=== PATIENT | male | born 1950 | race Caucasian/White ===

== ENCOUNTER → 2017-01-08 | Outpatient (CLI) | payer MEDICARE | END | disposition home or self-care (01) | LOC: RESCLI 02:59 → WOUNDCARE 10:44 → RESCLI 10:49 | DX: J44.9 Chronic obstructive pulmonary disease, unspecified (principal); I10 Essential (primary) hypertension; H61.23 Impacted cerumen, bilateral; Z87.891 Personal history of nicotine dependence ==

== ENCOUNTER → 2017-07-09 | Outpatient (CLI) | payer MEDICARE | END | disposition home or self-care (01) | LOC: RESCLI 00:46 | DX: J44.9 Chronic obstructive pulmonary disease, unspecified (principal); I10 Essential (primary) hypertension ==

== ENCOUNTER → 2018-06-14 | Outpatient (CLI) | payer MEDICARE ==
[~2018-06-14] MED LIST: COREG12.5 M1 PO; KLORVESS,K40 MEQ/30 PO; LASIX40 MG PO; NIFEDIPINE ER60 M1 PO
== END | disposition home or self-care (01) ==
LOC: US 08:41
DX: I10 Essential (primary) hypertension (principal); R94.4 Abnormal results of kidney function studies

== ENCOUNTER → 2018-07-30 | Outpatient (CLI) | payer MEDICARE ==
[~2018-07-30] MED LIST changes: +ATORVASTATIN CA40 M1 PO; +BUMETANIDE2 MG PO; +CLONIDINE HCL0.1 MG PO; +EFFER-K25 MEQ PO; +Hydralazine Hyd25 MG PO; +LISINOPRIL20 MG PO; +METOLAZONE5 MG PO; +OMEPRAZOLE D/R20 MG PO; +PREDNISONE20 M1 PO; +PRINIVIL20 M1 PO; +SEPTDS PO; +SPIRIVA18 MCG PO; +SYMB160 INH; +VITAMIN D32000 UNI1 PO; +Vitamin D PO; +ZESTRIL10 MG PO
[2018-07-30 13:51] LABS: ALBUMIN 2.2 gm/dl (3.1-4.5); CREATININE 3.37 mg/dL (0.70-1.30); PHOSPHOROUS 4.6 mg/dL (2.5-4.9)
== END | disposition home or self-care (01) ==
LOC: LAB 12:44
PROVIDERS: Family Medicine
DX: R94.4 Abnormal results of kidney function studies (principal)

== ENCOUNTER → 2018-08-08 | Outpatient (CLI) | payer MEDICARE ==
[2018-08-08 07:49] LABS: BILIRUBIN NEGATIVE (NEGATIVE); BLOOD 1+ (NEGATIVE); CLARITY CLEAR (CLEAR); COLOR YELLOW (YELLOW); GLUCOSE 3+ (NEGATIVE); KETONE NEGATIVE (NEGATIVE); LEUKO ESTERASE NEGATIVE (NEGATIVE); NITRITE NEGATIVE (NEGATIVE); PH 6.5 (5.0-9.0); UROBILINOGEN 0.2 E.U./dl (0.2-1.0)
[2018-08-08 07:59] LABS: ALBUMIN 2.4 gm/dl (3.1-4.5); CREATININE 3.78 mg/dL (0.70-1.30); PHOSPHOROUS 5.9 mg/dL (2.5-4.9); POTASSIUM 3.4 mmol/L (3.5-5.1)
[2018-08-08 08:00] LABS: URINE CREATININE RANDOM 70.7 mg/dL
[2018-08-08 08:08] LABS: BACTERIA 2+; HYALINE CAST 40-45
[2018-08-08 08:30] LABS: BASO # 0.1 10*3/uL (0.0-0.1); BASO % 0.7 % (0.0-1.0); EOS # 0.3 10*3/uL (0.0-0.4); EOS % 3.6 % (1.0-4.0); HEMATOCRIT 39.7 % (42.0-52.0); LYMPH # 1.7 10*3/uL (1.3-4.4); MEAN CELL VOLUME 93.4 fl (80.0-94.0); MEAN CORPUSCULAR HGB 30.6 pg (27.0-31.0); MEAN CORPUSCULAR HGB CONC 32.7 g/dl (33.0-37.0); MEAN PLATELET VOLUME 11.3 fl (9.6-12.3); MONO # 0.7 10*3/uL (0.1-1.0); MONO % 7.6 % (3.0-9.0); NEUT # 5.8 10*3/uL (2.3-7.9); NEUT % 67.5 % (47.0-73.0); PLATELET COUNT AUTOMATED 341 10*3/uL (130-400); RED BLOOD COUNT 4.25 10*6/uL (4.50-5.90); RED CELL DISTRI WIDTH 13.6 % (0-14.5); WHITE BLOOD COUNT 8.6 10*3/uL (4.8-10.8)
[2018-08-08 12:08] LABS: FERRITIN 334.8 ng/mL (22.0-322.0); PTH INTACT 629.5 pg/mL (18.5-88.0)
[2018-08-09 05:07] LABS: TOTAL PROTEIN, SERUM 5.7 g/dL (6.0-8.5)
[2018-08-09 07:10] LABS: HEPATITIS B SURFACE AG Negative (Negative); HEPATITIS C VIRUS ANTIBODY 0.1 s/co (0.0-0.9)
[2018-08-09 08:11] LABS: COMPLEMENT C4 001834 25 mg/dL (14-44); IMMUNOGLOBULIN G, QNT 660 mg/dL (700-1600); IMMUNOGLOBULIN M, QNT 134 mg/dL (20-172)
[2018-08-09 16:09] LABS: FREE KAPPA LIGHT CHAINS 180.6 mg/L (3.3-19.4); FREE LAMBDA LIGHT CHAINS 52.5 mg/L (5.7-26.3); KAPPA/LAMBDA RATIO 3.44 (0.26-1.65)
[2018-08-11 14:08] LABS: ALBUMIN 2.8 g/dL (2.9-4.4); ALPHA-1-GLOBULIN 0.2 g/dL (0.0-0.4); GAMMA GLOBULIN 0.7 g/dL (0.4-1.8); GLOBULIN, TOTAL 2.9 g/dL (2.2-3.9); M-SPIKE 0.2 g/dL (Not Observed); PE INTERPRETATION Comment: (.)
[2018-08-11 16:06] LABS: ATYPICAL PANCA <1:20 titer (Neg:<1:20); CYTOPLASMIC (C-ANCA) <1:20 titer (Neg:<1:20)
[2018-08-12 15:09] LABS: ALBUMIN 2.9 g/dL (2.9-4.4); ALPHA-1-GLOBULIN 0.2 g/dL (0.0-0.4); GAMMA GLOBULIN 0.7 g/dL (0.4-1.8); GLOBULIN, TOTAL 2.9 g/dL (2.2-3.9); M-SPIKE 0.2 g/dL (Not Observed); TOTAL PROTEIN, SERUM 5.8 g/dL (6.0-8.5)
== END | disposition home or self-care (01) ==
LOC: LAB 07:05
PROVIDERS: Internal Medicine Nephrology
DX: N17.9 Acute kidney failure, unspecified (principal); N18.3 Chronic kidney disease, stage 3 (moderate); D63.1 Anemia in chronic kidney disease; N25.81 Secondary hyperparathyroidism of renal origin; D64.9 Anemia, unspecified; Z79.899 Other long term (current) drug therapy

== ENCOUNTER → 2018-08-28 | Day surgery (SDC) | payer MEDICARE ==
[2018-08-28] VITALS (8 sets, daily range): BP systolic 122–164; BP diastolic 57–81
[2018-08-28 09:39] LABS: ACT PARTIAL THROMBO TIME 26.2 SECONDS (20.0-32.1)
== END | disposition home or self-care (01) ==
LOC: SDC 01:53 → CT 10:00 → SDC 11:00
PROVIDERS: Internal Medicine Nephrology
DX: N17.9 Acute kidney failure, unspecified (principal); I12.9 Hypertensive chronic kidney disease with stage 1 through stage 4 chronic kidney disease, or unspecified chronic kidney disease; N18.3 Chronic kidney disease, stage 3 (moderate); D63.1 Anemia in chronic kidney disease; E78.00 Pure hypercholesterolemia, unspecified; J44.9 Chronic obstructive pulmonary disease, unspecified; F15.90 Other stimulant use, unspecified, uncomplicated; R80.8 Other proteinuria; Z79.899 Other long term (current) drug therapy; Z72.89 Other problems related to lifestyle; Z87.891 Personal history of nicotine dependence; Z80.0 Family history of malignant neoplasm of digestive organs

== ENCOUNTER → 2018-10-01 | Outpatient (CLI) | payer MEDICARE ==
[2018-10-01 10:29] LABS: BASO % 0.2 % (0.0-1.0); EOS # 0.1 10*3/uL (0.0-0.4); EOS % 0.8 % (1.0-4.0); HEMATOCRIT 35.6 % (42.0-52.0); HEMOGLOBIN 12.1 g/dl (14.0-18.0); LYMPH # 0.8 10*3/uL (1.3-4.4); LYMPH % 6.1 % (27.0-41.0); MEAN CELL VOLUME 88.1 fl (80.0-94.0); MEAN PLATELET VOLUME 11.1 fl (9.6-12.3); MONO # 0.4 10*3/uL (0.1-1.0); MONO % 3.2 % (3.0-9.0); NEUT # 11.2 10*3/uL (2.3-7.9); NEUT % 87.7 % (47.0-73.0); PLATELET COUNT AUTOMATED 243 10*3/uL (130-400); RED BLOOD COUNT 4.04 10*6/uL (4.50-5.90); RED CELL DISTRI WIDTH 12.9 % (0-14.5); WHITE BLOOD COUNT 12.8 10*3/uL (4.8-10.8)
[2018-10-01 10:56] LABS: ALBUMIN 1.9 gm/dl (3.1-4.5); CREATININE 3.01 mg/dL (0.70-1.30); PHOSPHOROUS 5.8 mg/dL (2.5-4.9); POTASSIUM 3.1 mmol/L (3.5-5.1)
== END | disposition home or self-care (01) ==
LOC: LAB 09:56
PROVIDERS: Internal Medicine Nephrology
DX: N18.3 Chronic kidney disease, stage 3 (moderate) (principal); D63.1 Anemia in chronic kidney disease

== ENCOUNTER → 2018-10-15 | Outpatient (CLI) | payer MEDICARE ==
[~2018-10-15] MED LIST changes: -ATORVASTATIN CA40 M1 PO; -BUMETANIDE2 MG PO; -CLONIDINE HCL0.1 MG PO; -EFFER-K25 MEQ PO; -Hydralazine Hyd25 MG PO; -LISINOPRIL20 MG PO; -METOLAZONE5 MG PO; -OMEPRAZOLE D/R20 MG PO; -PREDNISONE20 M1 PO; -PRINIVIL20 M1 PO; -SEPTDS PO; -SPIRIVA18 MCG PO; -SYMB160 INH; -VITAMIN D32000 UNI1 PO; -Vitamin D PO; -ZESTRIL10 MG PO
== END | disposition home or self-care (01) ==
LOC: RESCLI 09:43
DX: E78.2 Mixed hyperlipidemia (principal); I12.9 Hypertensive chronic kidney disease with stage 1 through stage 4 chronic kidney disease, or unspecified chronic kidney disease; N18.4 Chronic kidney disease, stage 4 (severe); J43.8 Other emphysema; R60.9 Edema, unspecified; K21.9 Gastro-esophageal reflux disease without esophagitis

== ENCOUNTER → 2018-11-11 | Outpatient (CLI) | payer MEDICARE ==
[~2018-11-11] MED LIST changes: +ATORVASTATIN CA40 M1 PO; +BUMETANIDE2 MG PO; +CLONIDINE HCL0.1 MG PO; +EFFER-K25 MEQ PO; +Hydralazine Hyd25 MG PO; +LISINOPRIL20 MG PO; +METOLAZONE5 MG PO; +OMEPRAZOLE D/R20 MG PO; +PREDNISONE20 M1 PO; +PRINIVIL20 M1 PO; +SEPTDS PO; +SPIRIVA18 MCG PO; +SYMB160 INH; +VITAMIN D32000 UNI1 PO; +Vitamin D PO; +ZESTRIL10 MG PO
[2018-11-11 13:30] LABS: BILIRUBIN NEGATIVE (NEGATIVE); BLOOD 1+ (NEGATIVE); CLARITY CLEAR (CLEAR); COLOR YELLOW (YELLOW); GLUCOSE 3+ (NEGATIVE); KETONE NEGATIVE (NEGATIVE); LEUKO ESTERASE NEGATIVE (NEGATIVE); NITRITE NEGATIVE (NEGATIVE); UROBILINOGEN 0.2 E.U./dl (0.2-1.0)
[2018-11-11 13:34] LABS: BASO % 0.5 % (0.0-1.0); HEMATOCRIT 27.5 % (42.0-52.0); LYMPH # 0.4 10*3/uL (1.3-4.4); LYMPH % 5.4 % (27.0-41.0); MEAN CELL VOLUME 93.9 fl (80.0-94.0); MEAN CORPUSCULAR HGB 30.7 pg (27.0-31.0); MEAN CORPUSCULAR HGB CONC 32.7 g/dl (33.0-37.0); MEAN PLATELET VOLUME 9.7 fl (9.6-12.3); MONO # 0.3 10*3/uL (0.1-1.0); MONO % 3.8 % (3.0-9.0); NEUT # 5.7 10*3/uL (2.3-7.9); NEUT % 87.4 % (47.0-73.0); PLATELET COUNT AUTOMATED 304 10*3/uL (130-400); RED BLOOD COUNT 2.93 10*6/uL (4.50-5.90); RED CELL DISTRI WIDTH 16.2 % (0-14.5); WHITE BLOOD COUNT 6.5 10*3/uL (4.8-10.8)
[2018-11-11 13:44] LABS: RBC 0-2 rbc/hpf (0-2); WBC 0-2 wbc/hpf (0-5)
[2018-11-11 13:58] LABS: ALBUMIN 2.6 gm/dl (3.1-4.5); CREATININE 4.02 mg/dL (0.70-1.30); PHOSPHOROUS 4.8 mg/dL (2.5-4.9); POTASSIUM 3.8 mmol/L (3.5-5.1)
[2018-11-12 08:10] LABS: ALPHA-1-ANTITRYPSIN, SERUM 126 mg/dL (90-200)
[2018-11-13 14:07] LABS: PHENOTYPE MS (.)
== END | disposition home or self-care (01) ==
LOC: LAB 13:06
PROVIDERS: Internal Medicine Critical Care Medicine; Internal Medicine Nephrology
DX: J44.9 Chronic obstructive pulmonary disease, unspecified (principal); N04.2 Nephrotic syndrome with diffuse membranous glomerulonephritis; Z79.899 Other long term (current) drug therapy

== ENCOUNTER → 2018-11-19 | Outpatient (CLI) | payer MEDICARE | END | disposition home or self-care (01) | LOC: RESCLI 01:01 | DX: R60.9 Edema, unspecified (principal); K21.9 Gastro-esophageal reflux disease without esophagitis; J43.8 Other emphysema; I12.9 Hypertensive chronic kidney disease with stage 1 through stage 4 chronic kidney disease, or unspecified chronic kidney disease; N18.4 Chronic kidney disease, stage 4 (severe); F33.0 Major depressive disorder, recurrent, mild; Z79.899 Other long term (current) drug therapy ==

== ENCOUNTER 2018-11-26 08:57 | Inpatient (IN) | payer MEDICARE ==
[~2018-11-26] VITALS: Ht 180.3 cm; Wt 80.4 kg
[~2018-11-26 08:57] MED LIST changes: -ATORVASTATIN CA40 M1 PO; -BUMETANIDE2 MG PO; -CLONIDINE HCL0.1 MG PO; -EFFER-K25 MEQ PO; -Hydralazine Hyd25 MG PO; -LISINOPRIL20 MG PO; -METOLAZONE5 MG PO; -OMEPRAZOLE D/R20 MG PO; -PREDNISONE20 M1 PO; -PRINIVIL20 M1 PO; -SEPTDS PO; -SPIRIVA18 MCG PO; -SYMB160 INH; -VITAMIN D32000 UNI1 PO; -Vitamin D PO; -ZESTRIL10 MG PO
[2018-11-26 09:37] VITALS: BP 151/71
[2018-11-26] MEDS ORDERED: ZESTRIL10 MG PO (09:48)
[2018-11-26] MEDS ORDERED: SEPTDS PO (09:50)
[2018-11-26] MEDS ORDERED: Hydralazine Hyd25 MG PO (09:51)
[2018-11-26] MEDS ORDERED: PREDNISONE20 M1 PO (09:51)
[2018-11-26] MEDS ORDERED: OMEPRAZOLE D/R20 MG PO (09:52)
[2018-11-26] MEDS ORDERED: CLONIDINE HCL0.1 MG PO (09:52)
[2018-11-26] MEDS ORDERED: BUMETANIDE2 MG PO (09:53)
[2018-11-26] MEDS ORDERED: EFFER-K25 MEQ PO (09:53)
[2018-11-26] MEDS ORDERED: METOLAZONE5 MG PO (09:54)
[2018-11-26] MEDS ORDERED: SYMB160 INH (09:55)
[2018-11-26] MEDS ORDERED: SPIRIVA18 MCG PO (09:56)
--- NOTE | 2018-11-26 10:03 | NUR ---
A 68, admitted to , under the services of LEILA Lester DO with a diagnosis of CHRONIC RENAL FAILURE. Chief complaint is CHRONIC RENAL FAILURE. Patient arrived via bed from OP/ADMIT. Monitor applied. Initial assessment completed. Vital signs taken and recorded. LEILA LESTER DO notified of admission to the unit. Orders received. See assessment for past medical history, medications and allergies. Patient and/or family oriented to unit. [facility]. Clothing/patient valuable form completed. RYAN LOUIS
[2018-11-26 11:54] LABS: HEMATOCRIT 26.9 % (42.0-52.0); HEMOGLOBIN 8.8 g/dl (14.0-18.0); MEAN CELL VOLUME 94.4 fl (80.0-94.0); MEAN CORPUSCULAR HGB 30.9 pg (27.0-31.0); MEAN CORPUSCULAR HGB CONC 32.7 g/dl (33.0-37.0); PLATELET COUNT AUTOMATED 146 10*3/uL (130-400); RED BLOOD COUNT 2.85 10*6/uL (4.50-5.90); RED CELL DISTRI WIDTH 17.6 % (0-14.5); WHITE BLOOD COUNT 8.4 10*3/uL (4.8-10.8)
[2018-11-26 12:00] VITALS: BP 172/58
[2018-11-26 12:07] LABS: ALBUMIN 2.4 gm/dl (3.1-4.5); CREATININE 3.11 mg/dL (0.70-1.30); POTASSIUM 4.4 mmol/L (3.5-5.1); TOTAL PROTEIN 5.6 gm/dL (6.4-8.2)
[2018-11-26 12:17] LABS: OVALOCYTES FEW; PLATELET SUFFICIENCY NORMAL (NORMAL); POLYCHROMASIA SLIGHT; SCHISTOCYTES FEW; TOTAL CELLS COUNTED 100 #CELLS
[2018-11-26 16:00] VITALS: BP 131/59
[2018-11-26 20:00] VITALS: BP 133/63
[2018-11-26 22:25] LABS: BILIRUBIN NEGATIVE (NEGATIVE); BLOOD TRACE-INTACT (NEGATIVE); CLARITY CLEAR (CLEAR); COLOR YELLOW (YELLOW); GLUCOSE 3+ (NEGATIVE); KETONE NEGATIVE (NEGATIVE); LEUKO ESTERASE NEGATIVE (NEGATIVE); NITRITE NEGATIVE (NEGATIVE); SPECIFIC GRAVITY 1.015 (1.005-1.030); UROBILINOGEN 0.2 E.U./dl (0.2-1.0)
[2018-11-26 22:32] LABS: RBC 0-2 rbc/hpf (0-2)
[2018-11-26 22:33] LABS: BACTERIA TRACE; EPITHELIAL CELLS 0-2; WBC 0-2 wbc/hpf (0-5)
[2018-11-27] VITALS: BP 114/79
--- NOTE | 2018-11-27 01:44 | NUR ---
24 HR chart check completed.
[2018-11-27 06:24] LABS: BASO % 0.1 % (0.0-1.0); EOS # 0.2 10*3/uL (0.0-0.4); EOS % 2.7 % (1.0-4.0); HEMATOCRIT 25.7 % (42.0-52.0); HEMOGLOBIN 8.5 g/dl (14.0-18.0); LYMPH # 0.9 10*3/uL (1.3-4.4); LYMPH % 13.1 % (27.0-41.0); MEAN CELL VOLUME 94.1 fl (80.0-94.0); MEAN CORPUSCULAR HGB 31.1 pg (27.0-31.0); MEAN CORPUSCULAR HGB CONC 33.1 g/dl (33.0-37.0); MEAN PLATELET VOLUME 10.4 fl (9.6-12.3); MONO # 0.3 10*3/uL (0.1-1.0); MONO % 4.1 % (3.0-9.0); NEUT # 5.6 10*3/uL (2.3-7.9); NEUT % 79.4 % (47.0-73.0); PLATELET COUNT AUTOMATED 178 10*3/uL (130-400); RED BLOOD COUNT 2.73 10*6/uL (4.50-5.90); RED CELL DISTRI WIDTH 17.7 % (0-14.5)
[2018-11-27 06:27] LABS: ALBUMIN 2.2 gm/dl (3.1-4.5); CREATININE 3.04 mg/dL (0.70-1.30); PHOSPHOROUS 4.8 mg/dL (2.5-4.9); POTASSIUM 3.6 mmol/L (3.5-5.1); TOTAL PROTEIN 5.1 gm/dL (6.4-8.2)
[2018-11-27 06:31] LABS: THYROID STIM HORMONE (HS) 3.55 uIU/ml (0.358-4.75)
[2018-11-27 08:00] VITALS: BP 134/56
[2018-11-27 08:27] LABS: VITAMIN D, 25-HYDROXY 21.9 ng/mL (30-100)
--- NOTE | 2018-11-27 11:14 | NUR ---
Bracelet And Brooch Maker in to talk to patient. Patient states lives at home with . There are few steps in the home. Physician: [facility] Pharmacy: [facility] Home health services: none Patient's level of ADLs: INDEPENDENT Patient has working utilities: all working DME: none Follow-up physician's appointment after d/c: will be made by hospitalist nurse director upon discharge Does patient want to access PORTAL?: no Discharge plan discussed with patient, he lives at home with , is independent in adls and ambulation, will be returning home and denies any home needs. ANNA GREY
[2018-11-27 12:00] VITALS: BP 128/60
[2018-11-27] MEDS ORDERED: LISINOPRIL20 MG PO (14:09)
[2018-11-27] MEDS ORDERED: Vitamin D PO (14:09)
[2018-11-27] MEDS ORDERED: VITAMIN D32000 UNI1 PO (14:10)
--- NOTE | 2018-11-27 14:52 | NUR ---
Spoke to Dr. Escalona. He would like CM to start a prior authorization for Rituximab. Spoke to Dr. Escalona's office at [phone] regarding Rituximab prescription. Office spoke to Ginny who stated they didn't receive all of the faxes. Asked if the prescription could be faxed to [phone] for CM to start prior authorization. Awaiting fax.
--- NOTE | 2018-11-27 15:15 | NUR ---
case management was asked to check on authorization for Rituxan injection for patient, called insurance company and spoke to Alayna, this medication has been approved from February 2018 until February 2019, authorization numberis [id number], spoke to Marlyn in central scheduling and informed her of this, also received a call from Sandra from surgery stating she has the orders for patient to initiate his treatment and she will fax them to the pharmacy
[2018-11-27 16:00] VITALS: BP 120/50
[2018-11-27 20:00] VITALS: BP 128/55
--- NOTE | 2018-11-27 20:20 | NUR ---
RESTING IN BED IN A POSITION OF COMFORT, DENIES ANY PAIN OR DISTRESS AT THIS TIME. A&O X3, PLEASANT, COOPERATIVE, CONVERSES EASILY. CALL LIGHT WITHIN REACH. WILL CONTINUE TO MONITOR.
[2018-11-28] VITALS: BP 141/56
--- NOTE | 2018-11-28 00:35 | NUR ---
RESTING IN BED IN A POSITION OF COMFORT. RESPIRATIONS EASY AND REGULAR. NO APPARENT SIGNS OF DISTRESS NOTED. CALL LIGHT WITHIN REACH. WILL CONTINUE TO MONITOR.
[2018-11-28 07:23] LABS: POTASSIUM 3.9 mmol/L (3.5-5.1)
[2018-11-28 07:33] LABS: ALBUMIN 2.3 gm/dl (3.1-4.5); CREATININE 2.96 mg/dL (0.70-1.30); PHOSPHOROUS 4.5 mg/dL (2.5-4.9)
[2018-11-28 08:00] VITALS: BP 128/56
[2018-11-28] MEDS ORDERED: ATORVASTATIN CA40 M1 PO ×2 (08:50→08:51)
[2018-11-28] MEDS ORDERED: LISINOPRIL20 MG PO (08:51)
--- NOTE | 2018-11-28 11:16 | NUR ---
Discharge instructions reviewed with patient/family. Patient receptive and verbalizes understanding. Follow-up care arranged. Written instructions given to patient/family. HARRISON ROMO
[2018-11-28] MEDS ORDERED: PRINIVIL20 M1 PO (12:06)
== END 2018-11-28 11:16 | disposition home or self-care (01) | DRG 698 ==
LOC: RESCLI 08:57 → 4E 09:20
PROVIDERS: Internal Medicine; Student in an Organized Health Care Education/Training Program; ADMIT Internal Medicine
DX: N05.2 Unspecified nephritic syndrome with diffuse membranous glomerulonephritis (principal); E43 Unspecified severe protein-calorie malnutrition; I12.9 Hypertensive chronic kidney disease with stage 1 through stage 4 chronic kidney disease, or unspecified chronic kidney disease; N18.4 Chronic kidney disease, stage 4 (severe); J44.9 Chronic obstructive pulmonary disease, unspecified; D53.9 Nutritional anemia, unspecified; R73.9 Hyperglycemia, unspecified; D72.810 Lymphocytopenia; Z87.891 Personal history of nicotine dependence; Z80.0 Family history of malignant neoplasm of digestive organs; Z79.899 Other long term (current) drug therapy; Z68.26 Body mass index [BMI] 26.0-26.9, adult; Z79.52 Long term (current) use of systemic steroids

== ENCOUNTER → 2018-12-15 | Outpatient (CLI) | payer MEDICARE ==
[~2018-12-15] MED LIST changes: +ATORVASTATIN CA40 M1 PO; +BUMETANIDE2 MG PO; +CLONIDINE HCL0.1 MG PO; +EFFER-K25 MEQ PO; +HYDROCODONE-AC1 EAC1 PO; +Hydralazine Hyd25 MG PO; +LISINOPRIL20 MG PO; +METOLAZONE5 MG PO; +OMEPRAZOLE D/R20 MG PO; +PREDNISONE20 M1 PO; +PRINIVIL20 M1 PO; +SEPTDS PO; +SPIRIVA -- 3018 MCG INH; +SPIRIVA18 MCG PO; +SYMB160 INH; +VITAMIN D32000 UNI1 PO; +Vitamin D PO; +ZESTRIL10 MG PO
[2018-12-15 14:10] LABS: BILIRUBIN NEGATIVE (NEGATIVE); BLOOD 1+ (NEGATIVE); CLARITY CLEAR (CLEAR); COLOR YELLOW (YELLOW); GLUCOSE 2+ (NEGATIVE); KETONE NEGATIVE (NEGATIVE); LEUKO ESTERASE NEGATIVE (NEGATIVE); NITRITE NEGATIVE (NEGATIVE); PH 6.5 (5.0-9.0); SPECIFIC GRAVITY 1.015 (1.005-1.030); UROBILINOGEN 0.2 E.U./dl (0.2-1.0)
[2018-12-15 14:24] LABS: BACTERIA 1+; EPITHELIAL CELLS 0-2; RBC 0-2 rbc/hpf (0-2)
[2018-12-15 15:19] LABS: HEMOGLOBIN 9.8 g/dl (14.0-18.0); MEAN CELL VOLUME 95.7 fl (80.0-94.0); MEAN CORPUSCULAR HGB 32.3 pg (27.0-31.0); MEAN CORPUSCULAR HGB CONC 33.8 g/dl (33.0-37.0); MEAN PLATELET VOLUME 9.7 fl (9.6-12.3); PLATELET COUNT AUTOMATED 448 10*3/uL (130-400); RED BLOOD COUNT 3.03 10*6/uL (4.50-5.90); RED CELL DISTRI WIDTH 16.5 % (0-14.5); WHITE BLOOD COUNT 11.1 10*3/uL (4.8-10.8)
[2018-12-15 15:33] LABS: ALBUMIN 2.5 gm/dl (3.1-4.5); CREATININE 4.78 mg/dL (0.70-1.30); POTASSIUM 4.3 mmol/L (3.5-5.1); TOTAL PROTEIN 7.6 gm/dL (6.4-8.2)
[2018-12-15 15:50] LABS: PLATELET SUFFICIENCY NORMAL (NORMAL); TOTAL CELLS COUNTED 100 #CELLS
== END | disposition home or self-care (01) ==
LOC: RESCLI 13:44
PROVIDERS: Internal Medicine Nephrology; Student in an Organized Health Care Education/Training Program
DX: R10.30 Lower abdominal pain, unspecified (principal); R33.9 Retention of urine, unspecified; R39.11 Hesitancy of micturition; R60.9 Edema, unspecified; K21.9 Gastro-esophageal reflux disease without esophagitis; J43.8 Other emphysema; F33.0 Major depressive disorder, recurrent, mild; I12.9 Hypertensive chronic kidney disease with stage 1 through stage 4 chronic kidney disease, or unspecified chronic kidney disease; N18.4 Chronic kidney disease, stage 4 (severe); Z79.899 Other long term (current) drug therapy

== ENCOUNTER 2018-12-17 10:09 | Inpatient (IN) | payer MEDICARE ==
[~2018-12-17] VITALS: Ht 177.8 cm; Wt 73.1 kg
[~2018-12-17 10:09] MED LIST changes: -HYDROCODONE-AC1 EAC1 PO; -SPIRIVA -- 3018 MCG INH
[2018-12-17 10:12] VITALS: BP 149/50
[2018-12-17 11:20] LABS: HEMATOCRIT 28.2 % (42.0-52.0); HEMOGLOBIN 9.6 g/dl (14.0-18.0); MEAN CELL VOLUME 96.9 fl (80.0-94.0); MEAN PLATELET VOLUME 9.7 fl (9.6-12.3); PLATELET COUNT AUTOMATED 484 10*3/uL (130-400); RED BLOOD COUNT 2.91 10*6/uL (4.50-5.90); RED CELL DISTRI WIDTH 16.2 % (0-14.5); WHITE BLOOD COUNT 13.6 10*3/uL (4.8-10.8)
[2018-12-17 11:21] LABS: BILIRUBIN NEGATIVE (NEGATIVE); BLOOD TRACE-LYSED (NEGATIVE); CLARITY CLEAR (CLEAR); COLOR YELLOW (YELLOW); GLUCOSE 1+ (NEGATIVE); KETONE NEGATIVE (NEGATIVE); LEUKO ESTERASE NEGATIVE (NEGATIVE); NITRITE NEGATIVE (NEGATIVE); PH 7.5 (5.0-9.0); SPECIFIC GRAVITY 1.015 (1.005-1.030); UROBILINOGEN 0.2 E.U./dl (0.2-1.0)
[2018-12-17 11:36] LABS: ALBUMIN 2.4 gm/dl (3.1-4.5); CREATININE 4.78 mg/dL (0.70-1.30); POTASSIUM 4.2 mmol/L (3.5-5.1); TOTAL PROTEIN 7.3 gm/dL (6.4-8.2)
[2018-12-17 11:46] LABS: PLATELET SUFFICIENCY HIGH (NORMAL); TOTAL CELLS COUNTED 100 #CELLS
[2018-12-17 13:33] VITALS: BP 112/64
[2018-12-17 14:20] VITALS: BP 124/98
--- NOTE | 2018-12-17 14:20 | NUR ---
A 68, admitted to , under the services of LEILA Lester DO with a diagnosis of ACUTE AND CHRONIC RENAL FAILURE. Chief complaint is ABD PAIN. Patient arrived via stretcher from ER. Monitor applied. Initial assessment completed. Vital signs taken and recorded. LEILA LESTER DO notified of admission to the unit. Orders received. See assessment for past medical history, medications and allergies. Patient and/or family oriented to unit. [facility] visitation policy reviewed. Clothing/patient valuable form completed. ROSA SCHULTE
[2018-12-17] MEDS ORDERED: CLONIDINE HCL0.1 MG PO (15:55)
[2018-12-17] MEDS ORDERED: SPIRIVA -- 3018 MCG INH (15:56)
[2018-12-17 16:00] VITALS: BP 127/63
--- NOTE | 2018-12-17 17:47 | NUR ---
PT MEDICATED WITH NORCO FOR C/O ABD PAIN.
--- NOTE | 2018-12-17 17:55 | NUR ---
I NOTIFIED DR HUANG OF NEW CONSULT ORDER.
--- NOTE | 2018-12-17 17:59 | NUR ---
DR FRANCIS'S ANSWERING SERVICE MADE AWARE OF NEW CONSULT ORDER.
--- NOTE | 2018-12-17 18:52 | NUR ---
DR FRANCIS RETURNED CALL AND NOTIFIED OF NEW CONSULT ORDER.
--- NOTE | 2018-12-17 18:53 | NUR ---
DR JONES NOTIFIED THAT PT STATES NORCO WAS NOT EFFECTIVE AND PT IS STILL HAVING ABD PAIN.
[2018-12-17 20:00] VITALS: BP 109/60
--- NOTE | 2018-12-17 20:00 | NUR ---
AAOX3 RESTING IN BED. IV FLUIDS INFUSING INTO RIGHT ANTECUBITAL WITHOUT DIFFICULTY; SITE ASYMPTOMATIC. PT. VOICES NO C/O AT THIS TIME. NO DISTRESS NOTED. CALL LIGHT WITHIN REACH.
--- NOTE | 2018-12-17 22:40 | NUR ---
MEDICATED WITH NORCO FOR C/O ABDOMINAL DISCOMFORT RATED A 3/10 AND RESTORIL FOR C/O INSOMNIA.
[2018-12-18] VITALS: BP 107/49
--- NOTE | 2018-12-18 01:00 | NUR ---
RESTING IN BED WITH EYES CLOSED; MEDICATIONS GIVEN EARLIER APPARENTLY EFFECTIVE.
--- NOTE | 2018-12-18 06:15 | NUR ---
RESTING IN BED WITH EYES CLOSED. IV SITE REMAINS ASYMPTOMATIC. CALL LIGHT WITHIN REACH.
[2018-12-18 07:06] LABS: HEMATOCRIT 25.3 % (42.0-52.0); HEMOGLOBIN 8.2 g/dl (14.0-18.0); MEAN CELL VOLUME 96.9 fl (80.0-94.0); MEAN CORPUSCULAR HGB 31.4 pg (27.0-31.0); MEAN CORPUSCULAR HGB CONC 32.4 g/dl (33.0-37.0); MEAN PLATELET VOLUME 9.7 fl (9.6-12.3); PLATELET COUNT AUTOMATED 449 10*3/uL (130-400); RED BLOOD COUNT 2.61 10*6/uL (4.50-5.90); RED CELL DISTRI WIDTH 16.3 % (0-14.5); WHITE BLOOD COUNT 10.6 10*3/uL (4.8-10.8)
[2018-12-18 07:23] LABS: ACT PARTIAL THROMBO TIME 26.8 SECONDS (20.0-32.1)
[2018-12-18 07:29] LABS: CREATININE 4.45 mg/dL (0.70-1.30); PHOSPHOROUS 7.4 mg/dL (2.5-4.9); POTASSIUM 4.1 mmol/L (3.5-5.1)
[2018-12-18 07:42] LABS: FREE T4 1.13 ng/dl (0.76-1.46); THYROID STIM HORMONE (HS) 3.4 uIU/ml (0.358-4.75)
[2018-12-18 07:48] LABS: BASOPHILS 1 % (0-1); TOTAL CELLS COUNTED 100 #CELLS
[2018-12-18 07:49] LABS: PLATELET SUFFICIENCY NORMAL (NORMAL); ROULEAUX SLIGHT; SCHISTOCYTES FEW
[2018-12-18 08:06] LABS: VITAMIN D, 25-HYDROXY 23.7 ng/mL (30-100)
--- NOTE | 2018-12-18 11:53 | NUR ---
Machine Captain in to talk to patient. Patient states lives at HOME with . There are FEW steps in the home. Physician: [facility]acy: [facility] services: NONE Patient's level of ADLs: INDEPENDENT Patient has working utilities: YES DME: NONE Follow-up physician's appointment after d/c: WILL BE MADE BY HOSPITALIST NURSE DIRECTOR ON DISCHARGE Does patient want to access PORTAL?: NO Discharge plan PT LIVES AT HOME WITH HIS AND IS INDEPENDENT IN HIS CARE. DENIES THAT HE WILL HAVE ANY NEEDS ON DISCHARGE. AT BEDSIDE AND AGREES THEY HAVE NO NEEDS. WILL CONTINUE TO FOLLOW. WILL HAVE A RIDE HOME PER PT.. YARA LAYNE
[2018-12-18 12:00] VITALS: BP 116/53
--- NOTE | 2018-12-18 14:57 | NUR ---
NOTIFIED PHYSICIAN MEDS ARE RECONCILED.
[2018-12-18 16:00] VITALS: BP 114/62
--- NOTE | 2018-12-18 17:05 | NUR ---
SPOKE TO DR. JONES ABOUT PATIENTS MEDS NOT IN [facility], THEY HAVE BEEN RECONCILED BUT NOT CONTINUED BY PHYSICIAN. ALSO PATIENT STATES DR. ERNST SAID TO STOP CONTINUOUS INFUSION OF NS AT 100CC PERHR. EXPLAINED TO DR. JONES. AWAITING FURTHER INSTRUCTIONS
[2018-12-18] MEDS ORDERED: HYDROCODONE-AC1 EAC1 PO (17:16)
--- NOTE | 2018-12-18 17:43 | NUR ---
Discharge instructions reviewed with patient/family. Patient receptive and verbalizes understanding. Follow-up care arranged. Written instructions given to patient/family. NOLA MARIE
--- NOTE | 2018-12-19 08:30 | NUR ---
Occupational therapy orders received and chart reviewed. Patient admitted for acute on chronic renal failure. Patient has been discharged prior to OT evaluation. Thank you for the referral. Altagracia Jones, OTR/L
== END 2018-12-18 17:49 | disposition home or self-care (01) | DRG 683 ==
LOC: ED 10:09 → EDHOLD 13:08 → 5E 13:08
PROVIDERS: Internal Medicine; Nurse Practitioner Family; ADMIT Internal Medicine
DX: N17.9 Acute kidney failure, unspecified (principal); E44.0 Moderate protein-calorie malnutrition; N05.2 Unspecified nephritic syndrome with diffuse membranous glomerulonephritis; J44.9 Chronic obstructive pulmonary disease, unspecified; D53.9 Nutritional anemia, unspecified; D47.3 Essential (hemorrhagic) thrombocythemia; D72.810 Lymphocytopenia; N18.9 Chronic kidney disease, unspecified; Z79.899 Other long term (current) drug therapy; Z68.23 Body mass index [BMI] 23.0-23.9, adult

== ENCOUNTER → 2019-02-05 | Outpatient (CLI) | payer MEDICARE ==
[~2019-02-05] MED LIST changes: +HYDROCODONE-AC1 EAC1 PO; +SPIRIVA -- 3018 MCG INH
[2019-02-05 10:49] LABS: BILIRUBIN NEGATIVE (NEGATIVE); BLOOD 1+ (NEGATIVE); CLARITY CLEAR (CLEAR); COLOR YELLOW (YELLOW); GLUCOSE 1+ (NEGATIVE); KETONE NEGATIVE (NEGATIVE); LEUKO ESTERASE NEGATIVE (NEGATIVE); NITRITE NEGATIVE (NEGATIVE); PH 6.5 (5.0-9.0); SPECIFIC GRAVITY 1.015 (1.005-1.030); UROBILINOGEN 0.2 E.U./dl (0.2-1.0)
[2019-02-05 10:53] LABS: BASO # 0.1 10*3/uL (0.0-0.1); BASO % 0.7 % (0.0-1.0); EOS # 0.7 10*3/uL (0.0-0.4); EOS % 7.5 % (1.0-4.0); HEMATOCRIT 33.8 % (42.0-52.0); HEMOGLOBIN 10.7 g/dl (14.0-18.0); LYMPH # 1.1 10*3/uL (1.3-4.4); LYMPH % 11.6 % (27.0-41.0); MEAN CELL VOLUME 99.7 fl (80.0-94.0); MEAN CORPUSCULAR HGB 31.6 pg (27.0-31.0); MEAN CORPUSCULAR HGB CONC 31.7 g/dl (33.0-37.0); MEAN PLATELET VOLUME 9.6 fl (9.6-12.3); MONO # 1.3 10*3/uL (0.1-1.0); MONO % 12.9 % (3.0-9.0); NEUT # 6.5 10*3/uL (2.3-7.9); NEUT % 66.1 % (47.0-73.0); PLATELET COUNT AUTOMATED 435 10*3/uL (130-400); RED BLOOD COUNT 3.39 10*6/uL (4.50-5.90); RED CELL DISTRI WIDTH 13.1 % (0-14.5); WHITE BLOOD COUNT 9.8 10*3/uL (4.8-10.8)
[2019-02-05 11:02] LABS: BACTERIA TRACE; HYALINE CAST 15-20
[2019-02-05 11:20] LABS: ALBUMIN 2.7 gm/dl (3.1-4.5); CREATININE 3.56 mg/dL (0.70-1.30); PHOSPHOROUS 4.5 mg/dL (2.5-4.9); POTASSIUM 5.6 mmol/L (3.5-5.1)
[2019-02-05 11:22] LABS: URINE CREATININE RANDOM 38.7 mg/dL
[2019-02-05 12:46] LABS: VITAMIN D, 25-HYDROXY 29.3 ng/mL (30-100)
[2019-02-05 12:47] LABS: FERRITIN 533.9 ng/mL (22.0-322.0); PTH INTACT 340.9 pg/mL (18.5-88.0)
== END | disposition home or self-care (01) ==
LOC: LAB 10:27
PROVIDERS: Internal Medicine Nephrology
DX: N04.2 Nephrotic syndrome with diffuse membranous glomerulonephritis (principal); D63.1 Anemia in chronic kidney disease; N25.81 Secondary hyperparathyroidism of renal origin; E55.9 Vitamin D deficiency, unspecified; Z79.899 Other long term (current) drug therapy

== ENCOUNTER → 2019-03-09 | Outpatient (CLI) | payer MEDICARE ==
[2019-03-09 09:06] LABS: BASO # 0.1 10*3/uL (0.0-0.1); BASO % 0.9 % (0.0-1.0); EOS # 0.6 10*3/uL (0.0-0.4); EOS % 6.8 % (1.0-4.0); HEMATOCRIT 34.9 % (42.0-52.0); HEMOGLOBIN 11.1 g/dl (14.0-18.0); LYMPH % 11.7 % (27.0-41.0); MEAN CELL VOLUME 93.1 fl (80.0-94.0); MEAN CORPUSCULAR HGB 29.6 pg (27.0-31.0); MEAN CORPUSCULAR HGB CONC 31.8 g/dl (33.0-37.0); MEAN PLATELET VOLUME 9.9 fl (9.6-12.3); MONO % 11.2 % (3.0-9.0); NEUT # 5.9 10*3/uL (2.3-7.9); NEUT % 68.5 % (47.0-73.0); PLATELET COUNT AUTOMATED 370 10*3/uL (130-400); RED BLOOD COUNT 3.75 10*6/uL (4.50-5.90); RED CELL DISTRI WIDTH 13.1 % (0-14.5); WHITE BLOOD COUNT 8.6 10*3/uL (4.8-10.8)
[2019-03-09 09:15] LABS: URINE CREATININE RANDOM 83.7 mg/dL
[2019-03-09 09:35] LABS: POTASSIUM 3.8 mmol/L (3.5-5.1)
[2019-03-09 09:45] LABS: ALBUMIN 2.6 gm/dl (3.1-4.5); CREATININE 3.47 mg/dL (0.70-1.30); PHOSPHOROUS 3.3 mg/dL (2.5-4.9)
[2019-03-09 09:55] LABS: BILIRUBIN NEGATIVE (NEGATIVE); BLOOD 1+ (NEGATIVE); CLARITY CLEAR (CLEAR); COLOR YELLOW (YELLOW); GLUCOSE 2+ (NEGATIVE); KETONE NEGATIVE (NEGATIVE); LEUKO ESTERASE NEGATIVE (NEGATIVE); NITRITE NEGATIVE (NEGATIVE); UROBILINOGEN 0.2 E.U./dl (0.2-1.0)
[2019-03-09 10:04] LABS: VITAMIN D, 25-HYDROXY 28.1 ng/mL (30-100)
[2019-03-09 10:05] LABS: FERRITIN 459.3 ng/mL (22.0-322.0); PTH INTACT 367.7 pg/mL (18.5-88.0)
[2019-03-09 10:59] LABS: CALCIUM OXALATE CRYSTALS TRACE
[2019-03-09 11:00] LABS: BACTERIA TRACE; EPITHELIAL CELLS 2-42-4
== END | disposition home or self-care (01) ==
LOC: LAB 07:51
PROVIDERS: Internal Medicine Nephrology
DX: N04.2 Nephrotic syndrome with diffuse membranous glomerulonephritis (principal); D63.1 Anemia in chronic kidney disease; E55.9 Vitamin D deficiency, unspecified; I10 Essential (primary) hypertension; N25.81 Secondary hyperparathyroidism of renal origin; Z79.899 Other long term (current) drug therapy

== ENCOUNTER → 2019-04-07 | Outpatient (CLI) | payer MEDICARE | END | disposition home or self-care (01) | LOC: RESCLI 08:46 | DX: J06.9 Acute upper respiratory infection, unspecified (principal); I12.9 Hypertensive chronic kidney disease with stage 1 through stage 4 chronic kidney disease, or unspecified chronic kidney disease; N18.4 Chronic kidney disease, stage 4 (severe); J44.9 Chronic obstructive pulmonary disease, unspecified; J43.8 Other emphysema; K21.9 Gastro-esophageal reflux disease without esophagitis; N02.2 Recurrent and persistent hematuria with diffuse membranous glomerulonephritis; R05 Cough; Z79.899 Other long term (current) drug therapy ==

== ENCOUNTER → 2019-06-02 | Outpatient (CLI) | payer MEDICARE ==
[2019-06-02 09:04] LABS: BASO % 0.5 % (0.0-1.0); EOS # 0.4 10*3/uL (0.0-0.4); EOS % 5.3 % (1.0-4.0); HEMATOCRIT 34.3 % (42.0-52.0); HEMOGLOBIN 10.8 g/dl (14.0-18.0); LYMPH # 1.1 10*3/uL (1.3-4.4); LYMPH % 14.3 % (27.0-41.0); MEAN CELL VOLUME 93.2 fl (80.0-94.0); MEAN CORPUSCULAR HGB 29.3 pg (27.0-31.0); MEAN CORPUSCULAR HGB CONC 31.5 g/dl (33.0-37.0); MEAN PLATELET VOLUME 10.8 fl (9.6-12.3); MONO # 0.9 10*3/uL (0.1-1.0); MONO % 11.1 % (3.0-9.0); NEUT # 5.2 10*3/uL (2.3-7.9); NEUT % 68.1 % (47.0-73.0); PLATELET COUNT AUTOMATED 285 10*3/uL (130-400); RED BLOOD COUNT 3.68 10*6/uL (4.50-5.90); RED CELL DISTRI WIDTH 15.3 % (0-14.5); WHITE BLOOD COUNT 7.7 10*3/uL (4.8-10.8)
[2019-06-02 09:13] LABS: URINE CREATININE RANDOM 62.7 mg/dL
[2019-06-02 09:18] LABS: CLARITY CLEAR (CLEAR); COLOR YELLOW (YELLOW); GLUCOSE 2+ (NEGATIVE)
[2019-06-02 09:19] LABS: BILIRUBIN NEGATIVE (NEGATIVE); BLOOD NEGATIVE (NEGATIVE); KETONE NEGATIVE (NEGATIVE); LEUKO ESTERASE NEGATIVE (NEGATIVE); NITRITE NEGATIVE (NEGATIVE); SPECIFIC GRAVITY 1.025 (1.005-1.030); UROBILINOGEN 0.2 E.U./dl (0.2-1.0)
[2019-06-02 09:33] LABS: RBC 0-2 rbc/hpf (0-2)
[2019-06-02 09:34] LABS: ALBUMIN 2.8 gm/dl (3.1-4.5); CREATININE 3.68 mg/dL (0.70-1.30); POTASSIUM 4.3 mmol/L (3.5-5.1)
[2019-06-02 09:44] LABS: VITAMIN D, 25-HYDROXY 26.5 ng/mL (30-100)
[2019-06-02 09:45] LABS: FERRITIN 313.3 ng/mL (22.0-322.0); PTH INTACT 350.7 pg/mL (18.5-88.0)
== END | disposition home or self-care (01) ==
LOC: LAB 07:52
PROVIDERS: Internal Medicine Nephrology
DX: N04.2 Nephrotic syndrome with diffuse membranous glomerulonephritis (principal); D63.1 Anemia in chronic kidney disease; N25.81 Secondary hyperparathyroidism of renal origin; D55.9 Anemia due to enzyme disorder, unspecified; Z79.899 Other long term (current) drug therapy

== ENCOUNTER → 2019-08-31 | Outpatient (CLI) | payer MEDICARE ==
[2019-08-31 08:58] LABS: BILIRUBIN NEGATIVE (NEGATIVE); CLARITY CLEAR (CLEAR); COLOR YELLOW (YELLOW); GLUCOSE 2+ (NEGATIVE)
[2019-08-31 08:59] LABS: BACTERIA 1+; BLOOD 1+ (NEGATIVE); KETONE NEGATIVE (NEGATIVE); LEUKO ESTERASE NEGATIVE (NEGATIVE); MUCOUS 1+; NITRITE NEGATIVE (NEGATIVE); PH 6.5 (5.0-9.0); SPECIFIC GRAVITY 1.015 (1.005-1.030); UROBILINOGEN 0.2 E.U./dl (0.2-1.0)
[2019-08-31 09:04] LABS: URINE CREATININE RANDOM 53.5 mg/dL
[2019-08-31 09:20] LABS: ALBUMIN 2.9 gm/dl (3.1-4.5); CREATININE 4.18 mg/dL (0.70-1.30); POTASSIUM 5.3 mmol/L (3.5-5.1)
[2019-08-31 10:28] LABS: FERRITIN 414.8 ng/mL (22.0-322.0); VITAMIN D, 25-HYDROXY 27.2 ng/mL (30-100)
== END | disposition home or self-care (01) ==
LOC: LAB 07:44
PROVIDERS: Internal Medicine Nephrology
DX: N04.2 Nephrotic syndrome with diffuse membranous glomerulonephritis (principal); D63.1 Anemia in chronic kidney disease; E55.9 Vitamin D deficiency, unspecified; Z79.899 Other long term (current) drug therapy

== ENCOUNTER → 2019-10-01 | Outpatient (CLI) | payer MEDICARE | END | disposition home or self-care (01) | LOC: RESCLI 00:39 | DX: J43.8 Other emphysema (principal); R73.9 Hyperglycemia, unspecified; I12.9 Hypertensive chronic kidney disease with stage 1 through stage 4 chronic kidney disease, or unspecified chronic kidney disease; N18.4 Chronic kidney disease, stage 4 (severe); E55.9 Vitamin D deficiency, unspecified; E78.00 Pure hypercholesterolemia, unspecified; Z79.899 Other long term (current) drug therapy; Z98.890 Other specified postprocedural states; Z87.891 Personal history of nicotine dependence; Z88.8 Allergy status to other drugs, medicaments and biological substances ==

== ENCOUNTER → 2019-12-03 | Outpatient (CLI) | payer MEDICARE ==
[2019-12-03 08:53] LABS: URINE CREATININE RANDOM 51.5 mg/dL
[2019-12-03 08:54] LABS: IRON 76 ug/dL (65-175)
[2019-12-03 08:55] LABS: TOTAL IRON BINDING CAPACITY 220 ug/dl (250-450)
[2019-12-03 09:26] LABS: FERRITIN 406.2 ng/mL (22.0-322.0); VITAMIN D, 25-HYDROXY 22.8 ng/mL (30-100)
== END | disposition home or self-care (01) ==
LOC: LAB 07:15
PROVIDERS: ATTEND Internal Medicine Nephrology
DX: E55.9 Vitamin D deficiency, unspecified (principal); N04.2 Nephrotic syndrome with diffuse membranous glomerulonephritis; D63.1 Anemia in chronic kidney disease

== ENCOUNTER → 2019-12-17 | Outpatient (CLI) | payer MEDICARE ==
[2019-12-17 08:44] LABS: BASO # 0.1 10*3/uL (0.0-0.1); BASO % 0.8 % (0.0-1.0); EOS # 0.4 10*3/uL (0.0-0.4); EOS % 4.8 % (1.0-4.0); HEMATOCRIT 32.6 % (42.0-52.0); LYMPH # 1.1 10*3/uL (1.3-4.4); LYMPH % 14.9 % (27.0-41.0); MEAN CELL VOLUME 96.7 fl (80.0-94.0); MEAN CORPUSCULAR HGB 30.9 pg (27.0-31.0); MEAN CORPUSCULAR HGB CONC 31.9 g/dl (33.0-37.0); MEAN PLATELET VOLUME 10.7 fl (9.6-12.3); MONO # 0.8 10*3/uL (0.1-1.0); MONO % 10.2 % (3.0-9.0); NEUT # 5.2 10*3/uL (2.3-7.9); NEUT % 67.9 % (47.0-73.0); PLATELET COUNT AUTOMATED 270 10*3/uL (130-400); RED BLOOD COUNT 3.37 10*6/uL (4.50-5.90); RED CELL DISTRI WIDTH 13.3 % (0-14.5); WHITE BLOOD COUNT 7.6 10*3/uL (4.8-10.8)
[2019-12-17 09:16] LABS: ALBUMIN 2.5 gm/dl (3.1-4.5); CREATININE 4.41 mg/dL (0.70-1.30); POTASSIUM 4.9 mmol/L (3.5-5.1)
== END | disposition home or self-care (01) ==
LOC: LAB 08:00
PROVIDERS: ATTEND Internal Medicine Nephrology
DX: N04.2 Nephrotic syndrome with diffuse membranous glomerulonephritis (principal)

== ENCOUNTER → 2020-03-14 | Outpatient (CLI) | payer MEDICARE ==
[2020-03-14 07:58] LABS: BILIRUBIN Negative (Negative); BLOOD Trace-Lysed (Negative); CLARITY Clear (Clear); COLOR Yellow (Yellow); GLUCOSE 2+ (Negative); KETONE Negative (Negative); LEUKO ESTERASE Negative (Negative); NITRITE Negative (Negative); PH 6.5 (4.5-8.0); SPECIFIC GRAVITY 1.015 (1.001-1.030); UROBILINOGEN 0.2 E.U./dl (0.0-1.0)
[2020-03-14 08:10] LABS: URINE CREATININE RANDOM 51.8 mg/dL
[2020-03-14 08:26] LABS: ALBUMIN 2.7 gm/dl (3.1-4.5); CREATININE 4.18 mg/dL (0.70-1.30)
[2020-03-14 08:30] LABS: BASO # 0.1 10*3/uL (0.0-0.1); BASO % 0.8 % (0.0-1.0); EOS # 0.5 10*3/uL (0.0-0.4); EOS % 5.6 % (1.0-4.0); HEMATOCRIT 32.6 % (42.0-52.0); LYMPH # 1.1 10*3/uL (1.3-4.4); LYMPH % 13.4 % (27.0-41.0); MEAN CELL VOLUME 96.7 fl (80.0-94.0); MEAN CORPUSCULAR HGB 30.6 pg (27.0-31.0); MEAN CORPUSCULAR HGB CONC 31.6 g/dl (33.0-37.0); MEAN PLATELET VOLUME 10.7 fl (9.6-12.3); MONO # 0.8 10*3/uL (0.1-1.0); MONO % 9.4 % (3.0-9.0); NEUT # 5.8 10*3/uL (2.3-7.9); NEUT % 69.6 % (47.0-73.0); PLATELET COUNT AUTOMATED 276 10*3/uL (130-400); RED BLOOD COUNT 3.37 10*6/uL (4.50-5.90); RED CELL DISTRI WIDTH 13.6 % (0-14.5); WHITE BLOOD COUNT 8.3 10*3/uL (4.8-10.8)
[2020-03-14 08:39] LABS: FERRITIN 471.1 ng/mL (22.0-322.0); PTH INTACT 475.3 pg/mL (18.5-88.0); VITAMIN D, 25-HYDROXY 23.8 ng/mL (30-100)
[2020-03-14 10:14] LABS: BACTERIA TRACE; MUCOUS 1+
== END | disposition home or self-care (01) ==
LOC: LAB 07:25
PROVIDERS: ATTEND Internal Medicine Nephrology
DX: N04.2 Nephrotic syndrome with diffuse membranous glomerulonephritis (principal); D63.1 Anemia in chronic kidney disease; E55.9 Vitamin D deficiency, unspecified; N25.81 Secondary hyperparathyroidism of renal origin; Z79.899 Other long term (current) drug therapy

== ENCOUNTER → 2020-04-28 | Outpatient (CLI) | payer MEDICARE | END | disposition home or self-care (01) | LOC: RESCLI 01:28 | PROVIDERS: ATTEND Internal Medicine Nephrology | DX: R73.9 Hyperglycemia, unspecified (principal); J43.8 Other emphysema; J44.9 Chronic obstructive pulmonary disease, unspecified; K21.9 Gastro-esophageal reflux disease without esophagitis; I10 Essential (primary) hypertension; E78.00 Pure hypercholesterolemia, unspecified; E55.9 Vitamin D deficiency, unspecified; R60.9 Edema, unspecified; Z79.899 Other long term (current) drug therapy ==

== ENCOUNTER → 2020-05-24 | Outpatient (CLI) | payer MEDICARE ==
[2020-05-24 07:56] LABS: BILIRUBIN Negative (Negative); BLOOD Trace-Lysed (Negative); CLARITY Clear (Clear); COLOR Yellow (Yellow); GLUCOSE 1+ (Negative); KETONE Negative (Negative); LEUKO ESTERASE Negative (Negative); NITRITE Negative (Negative); PH 6.5 (4.5-8.0); UROBILINOGEN 0.2 E.U./dl (0.0-1.0)
[2020-05-24 07:56] LABS: BASO # 0.1 10*3/uL (0.0-0.1); BASO % 0.9 % (0.0-1.0); EOS # 0.4 10*3/uL (0.0-0.4); EOS % 4.7 % (1.0-4.0); HEMATOCRIT 33.8 % (42.0-52.0); LYMPH % 11.2 % (27.0-41.0); MEAN CELL VOLUME 96.8 fl (80.0-94.0); MEAN CORPUSCULAR HGB 31.2 pg (27.0-31.0); MEAN CORPUSCULAR HGB CONC 32.2 g/dl (33.0-37.0); MEAN PLATELET VOLUME 10.6 fl (9.6-12.3); MONO # 0.9 10*3/uL (0.1-1.0); MONO % 10.5 % (3.0-9.0); NEUT # 6.2 10*3/uL (2.3-7.9); NEUT % 71.5 % (47.0-73.0); PLATELET COUNT AUTOMATED 270 10*3/uL (130-400); RED BLOOD COUNT 3.49 10*6/uL (4.50-5.90); RED CELL DISTRI WIDTH 13.5 % (0-14.5); WHITE BLOOD COUNT 8.6 10*3/uL (4.8-10.8)
[2020-05-24 08:15] LABS: ALBUMIN 2.8 gm/dl (3.1-4.5); CREATININE 4.15 mg/dL (0.70-1.30)
[2020-05-24 08:34] LABS: MUCOUS TRACE; RBC 0-2 rbc/hpf (0-2)
[2020-05-24 08:50] LABS: FERRITIN 513.9 ng/mL (22.0-322.0); VITAMIN D, 25-HYDROXY 27.5 ng/mL (30-100)
[2020-05-24 09:16] LABS: PTH INTACT 615.1 pg/mL (18.5-88.0)
== END | disposition home or self-care (01) ==
LOC: LAB 07:16
PROVIDERS: ATTEND Internal Medicine Nephrology
DX: E55.9 Vitamin D deficiency, unspecified (principal); N04.2 Nephrotic syndrome with diffuse membranous glomerulonephritis; N25.81 Secondary hyperparathyroidism of renal origin; D63.1 Anemia in chronic kidney disease; Z79.899 Other long term (current) drug therapy

== ENCOUNTER → 2020-07-08 | Outpatient (CLI) | payer MEDICARE | LOC: RESCLI 02:45 | PROVIDERS: ATTEND Family Medicine | DX: J43.8 Other emphysema (principal); I12.9 Hypertensive chronic kidney disease with stage 1 through stage 4 chronic kidney disease, or unspecified chronic kidney disease; N18.5 Chronic kidney disease, stage 5; K21.9 Gastro-esophageal reflux disease without esophagitis; E78.00 Pure hypercholesterolemia, unspecified; E55.9 Vitamin D deficiency, unspecified; R60.9 Edema, unspecified; Z79.899 Other long term (current) drug therapy; Z87.891 Personal history of nicotine dependence ==

== ENCOUNTER → 2020-07-29 | Outpatient (CLI) | payer MEDICARE | END | disposition home or self-care (01) | LOC: RESCLI 06:39 | PROVIDERS: ATTEND Internal Medicine | DX: Z01.818 Encounter for other preprocedural examination (principal); E83.39 Other disorders of phosphorus metabolism; E78.00 Pure hypercholesterolemia, unspecified; E55.9 Vitamin D deficiency, unspecified; R60.9 Edema, unspecified; J43.8 Other emphysema; J44.9 Chronic obstructive pulmonary disease, unspecified; K21.9 Gastro-esophageal reflux disease without esophagitis; I10 Essential (primary) hypertension; Z79.899 Other long term (current) drug therapy; Z98.890 Other specified postprocedural states; Z87.891 Personal history of nicotine dependence ==

== ENCOUNTER → 2020-09-26 | Outpatient (CLI) | payer MEDICARE ==
[2020-09-26 08:03] LABS: BILIRUBIN Negative (Negative); BLOOD Trace-Lysed (Negative); CLARITY Clear (Clear); COLOR Yellow (Yellow); GLUCOSE 1+ (Negative); KETONE Negative (Negative); LEUKO ESTERASE Negative (Negative); NITRITE Negative (Negative); UROBILINOGEN 0.2 E.U./dl (0.0-1.0)
[2020-09-26 08:21] LABS: RBC 0-2 rbc/hpf (0-2); WBC 0-2 wbc/hpf (0-5)
[2020-09-26 08:26] LABS: URINE CREATININE RANDOM 32.3 mg/dL
[2020-09-26 08:29] LABS: ALBUMIN 2.6 gm/dl (3.1-4.5); POTASSIUM 4.5 mmol/L (3.5-5.1)
[2020-09-26 08:31] LABS: CREATININE 3.79 mg/dL (0.70-1.30)
[2020-09-26 08:36] LABS: VITAMIN D, 25-HYDROXY 48.8 ng/mL (30-100)
== END | disposition home or self-care (01) ==
LOC: LAB 07:07
PROVIDERS: ATTEND Internal Medicine Nephrology
DX: N04.2 Nephrotic syndrome with diffuse membranous glomerulonephritis (principal); E55.9 Vitamin D deficiency, unspecified; D63.1 Anemia in chronic kidney disease; Z79.899 Other long term (current) drug therapy

== ENCOUNTER → 2021-09-22 | Outpatient (CLI) | payer MEDICARE | END | disposition home or self-care (01) | LOC: RESCLI 14:51 | PROVIDERS: ATTEND Emergency Medicine | DX: I12.9 Hypertensive chronic kidney disease with stage 1 through stage 4 chronic kidney disease, or unspecified chronic kidney disease (principal); E78.00 Pure hypercholesterolemia, unspecified; E55.9 Vitamin D deficiency, unspecified; J44.9 Chronic obstructive pulmonary disease, unspecified; N18.4 Chronic kidney disease, stage 4 (severe); R60.9 Edema, unspecified; Z79.899 Other long term (current) drug therapy; Z88.8 Allergy status to other drugs, medicaments and biological substances ==

== ENCOUNTER → 2021-11-30 | Day surgery (SDC) | payer MEDICARE ==
[2021-11-28 13:26] VITALS: BP 166/48
[~2021-11-30] VITALS: Ht 177.8 cm; Wt 81.6 kg
[~2021-11-30] MED LIST changes: +ONDANSETRON HYDR4 M1 PO; +PERCOCET 5-3251 EACH PO; +RENVELA800 MG PO; +SODIUM BICARBO650 MG PO
[2021-11-30 08:58] VITALS: BP 135/62
[2021-11-30 10:45] VITALS: BP 157/62
[2021-11-30 10:57] VITALS: BP 153/60
[2021-11-30 11:11] VITALS: BP 157/62
[2021-11-30 11:30] VITALS: BP 145/53
[2021-11-30 11:45] VITALS: BP 126/48
== END | disposition home or self-care (01) ==
LOC: SDC 11-28 13:15
PROVIDERS: ATTEND Surgery
DX: Z49.02 Encounter for fitting and adjustment of peritoneal dialysis catheter (principal); J44.9 Chronic obstructive pulmonary disease, unspecified; I12.9 Hypertensive chronic kidney disease with stage 1 through stage 4 chronic kidney disease, or unspecified chronic kidney disease; N18.4 Chronic kidney disease, stage 4 (severe); E78.5 Hyperlipidemia, unspecified; Z98.890 Other specified postprocedural states

== ENCOUNTER → 2022-04-30 | Outpatient (CLI) | payer OTHER | END | disposition home or self-care (01) | LOC: US 00:28 | PROVIDERS: ATTEND Internal Medicine | DX: I70.202 Unspecified atherosclerosis of native arteries of extremities, left leg (principal); I70.291 Other atherosclerosis of native arteries of extremities, right leg; M79.671 Pain in right foot; M79.672 Pain in left foot; R60.0 Localized edema; R20.0 Anesthesia of skin; I12.0 Hypertensive chronic kidney disease with stage 5 chronic kidney disease or end stage renal disease; N18.6 End stage renal disease; E78.00 Pure hypercholesterolemia, unspecified; G62.9 Polyneuropathy, unspecified; M79.606 Pain in leg, unspecified ==